=== PATIENT | male | born 2000 | race American Indian/Alaskan Native ===

== ENCOUNTER 2018-06-26 02:02 | Emergency (ER) | payer MEDICAID ==
[2018-06-26 02:28] VITALS: BMI 24.0
[2018-06-26 02:30] VITALS: RESP 18; TEMP 99.6; O2SAT 100
[2018-06-26] MEDS ORDERED: Lidocaine 1% Inj (20ml) IJ STA (02:31)
[2018-06-26] MEDS ORDERED: TDAP Vaccine 0.5 mL Syr IM ONE (02:32)
[2018-06-26] MEDS ORDERED: Lidocaine 1% (10 ml) Inj INJ STA (02:43)
[2018-06-26] MEDS ORDERED: Lidocaine 1% 5ml Abboject ONE (02:51)
--- NOTE | 2018-06-26 03:40 | ED PDOC ---
Arrival/HPI - General Chief Complaint: Abnormal Skin Integrity Time Seen by Provider: 06/26/18 02:31 Historian: Patient - History of Present Illness Narrative History of Present Illness (Text): 06/26/18 03:38 17 year old male, with no significant past medical history, presents to the emergency department with laceration to back. Patient states he fell on a lamp. Patient states he didn't feel anything until he saw the blood. Patient informs he is unsure of his last tetanus shot date. Patient denies any headache, dizziness, or any other complaints. Time/Duration: 1/2 hour Symptom Onset: Gradual Symptom Course: Unchanged Activities at Onset: Light Past Medical History - Provider Review Nursing Documentation Reviewed: Yes - Infectious Disease Hx of Infectious Diseases: None Family/Social History - Physician Review Nursing Documentation Reviewed: Yes Family/Social History: No Known Family HX Allergies/Home Meds Allergies/Adverse Reactions: Allergies No Known Allergies Allergy (Verified 06/26/18 02:27) Review of Systems - Physician Review All systems were reviewed & negative as marked: Yes - Review of Systems Skin: Laceration Neurological: absent: Headache, Dizziness Physical Exam - Physical Exam Narrative Physical Exam (Text): 06/26/18 03:42 Gen: VS reviewed, alert, well developed, well nourished, nontoxic, mild distress. ENT: normal pharynx. Eye: EOMI, PERRL. Neck: no JVD, supple, no adenopathy. CV: regular rate, regular rhythm, no rubs, no murmur, no gallops, S1, S2, pulses equal and strong. Pulm: no distress, clear to auscultation, no wheeze, no rhonchi, breath sounds equal, no rales. Abd: soft, nontender, no guarding, no rebound, no rigidity, normal bowel sounds. Ext: no edema. Skin: laceration on the upper back. Psych: responds appropriately to questions, normal affect. Neuro: oriented x 3, CN2-12 intact grossly, motor intact, sensation intact. Vital Signs Reviewed: Yes Vital Signs Temp Pulse Resp BP Pulse Ox 06/26/18 02:28 99.6 F 88 18 141/87 100 Temperature: Afebrile Blood Pressure: Normal Pulse: Regular Respiratory Rate: Normal Appearance: Positive for: Well-Appearing, Non-Toxic, Comfortable Pain Distress: None Mental Status: Positive for: Alert and Oriented X 3 Medical Decision Making ED Course and Treatment: 06/26/18 03:43 Impression: 17 year old male presents with laceration. Plan: -- Lidocaine (Lac Repair) -- TDAP -- Reassess and disposition Prior Visits: Notes and results from previous visits were reviewed. Progress Notes: - Medication Orders Current Medication Orders: Discontinued Medications Lidocaine HCl (Lidocaine Hydrochloride 1% 10 Ml) 20 ml INJ STAT STA Stop: 06/26/18 02:44 Last Admin: 06/26/18 03:16 Dose: Not Given Non-Admin Reason: given by Tetanus/Reduced Diphtheria/Acell Pertussis (Boostrix Vaccine Inj) 0.5 ml IM .ONCE ONE Stop: 06/26/18 02:33 Last Admin: 06/26/18 03:15 Dose: 0.5 ml - Scribe Statement The provider has reviewed the documentation as recorded by the Scribe Srinivas Wilson Provider Scribe Attestation: All medical record entries made by the Scribe were at my direction and personally dictated by me. I have reviewed the chart and agree that the record a ccurately reflects my personal performance of the history, physical exam, medical decision making, and the department course for this patient. I have also personally directed, reviewed, and agree with the discharge instructions and disposition. Disposition/Present on Arrival - Present on Arrival Any Indicators Present on Arrival: No History of DVT/PE: No History of Uncontrolled Diabetes: No Urinary Catheter: No History of Decub. Ulcer: No History Surgical Site Infection Following: None - Disposition Have Diagnosis and Disposition been Completed?: Yes Diagnosis: Laceration Disposition: HOME/ ROUTINE Disposition Time: 06:14 (actual time not reflected here) Condition: STABLE Discharge Instructions (ExitCare): Stitches Additional Instructions: Have the sutures removed in 10-14 days. Return for any signs of infection such as increased pain, increased redness, swelling of the wound. VALENTINA STACY, thank you for letting us take care of you today. Your provider was Dr. Collin Ramirez and you were treated for laceration. The emergency medical care you received today was directed at your acute symptoms. If you were prescribed any medication, please fill it and take as directed. It may take several days for your symptoms to resolve. Return to the Emergency Department if your symptoms worsen, do not improve, or if you have any other problems. Please contact your doctor or call one of the physicians/clinics you have been referred to that are listed on the Patient Visit Information form that is included in your discharge packet. Bring any paperwork you were given at discharge with you along with any medications you are taking to your follow up visit. Our treatment cannot replace ongoing medical care by a primary care provider outside of the emergency department. Thank you for allowing the [facility] team to be part of your care today. If you had an X-Ray or CT scan: A Radiologist will review the ED reading if any change in treatment is needed we will contact you. If you had a blood, urine, or wound culture: It will take several days for the results, if any change in treatment is needed we will contact you. If you had an STI test: It will take 48 hours for the results. Please call after 1 week if you have not heard back. Prescriptions: Cephalexin [Keflex] 500 mg PO QID 5 Days #20 capsule Forms: [employer] (Macedonian), WORK NOTE
[2018-06-26 04:31] VITALS: BP 135/78; PULSE 85
== END 2018-06-26 03:26 | disposition home or self-care (01) ==
LOC: ED 02:02
DX: S21.219A Laceration without foreign body of unspecified back wall of thorax without penetration into thoracic cavity, initial encounter (principal); W01.118A Fall on same level from slipping, tripping and stumbling with subsequent striking against other sharp object, initial encounter; Y92.9 Unspecified place or not applicable; Z23 Encounter for immunization